=== PATIENT | female | born 1955 | race Caucasian/White ===

== ENCOUNTER → 2023-07-08 11:58 | Outpatient (REF) | payer OTHER, SELFPAY | LOC: HWRAD 11:58 | PROVIDERS: ATTENDING PHYSICIAN Nurse Practitioner Family | DX: Z12.31 Encounter for screening mammogram for malignant neoplasm of breast (principal); Z78.0 Asymptomatic menopausal state | CPT/HCPCS: 77063; 77067; 77080 ==

== ENCOUNTER → 2024-08-17 14:38 | Outpatient (REF) | payer OTHER, SELFPAY | LOC: HWWDC 14:38 | PROVIDERS: ATTENDING PHYSICIAN Nurse Practitioner Family | DX: Z12.31 Encounter for screening mammogram for malignant neoplasm of breast (principal) | CPT/HCPCS: 77063; 77067 ==